=== PATIENT | female | born 1970 | race Caucasian/White ===

== ENCOUNTER 2024-09-25 15:27 | Emergency (ER) | payer OTHER, SELFPAY ==
[2024-09-25 15:35] VITALS: BP 141/92; PULSE 68; RESP 20; TEMP 37; O2SAT 100
--- NOTE | 2024-09-25 15:53 | ED_ITS ---
HPI - Wound/Laceration General Chief Complaint: Wound/Laceration Stated Complaint: R FOOT LACERATION Time Seen by Provider: 09/25/24 15:53 Source: patient Mode of arrival: ambulatory Limitations: no limitations History of Present Illness HPI narrative: 54-year-old female presents with laceration to right foot. Patient was cooking at home and a glass bowl fell off a counter and broke. Bleeding controlled on arrival. CMS intact. All systems reviewed and negative except as noted above. Related Data Home Medications ?Medication ?Instructions ?Recorded ?Confirmed ?Last Taken ?Type No Home Medications 09/25/24 09/25/24 Unknown History Allergies Allergy/AdvReac Type Severity Reaction Status Date / Time Sulfa (Sulfonamide Allergy Rash Verified 09/25/24 15:45 Antibiotics) Review of Systems Review of Systems: CONSTITUTIONAL: Denies fever, chills, or sweats. EYES: Denies visual changes, redness, or discharge. ENT: Denies rhinorrhea, congestion, sore throat, or otalgia. CARDIOVASCULAR: Denies chest pain, palpitations, or edema. RESPIRATORY: Denies cough or dyspnea. GASTROINTESTINAL: Denies abdominal pain, nausea, vomiting, or diarrhea. GENITOURINARY: Denies dysuria or hematuria. SKIN: Denies rash or itching. Reports laceration to right foot MUSCULOSKELETAL: Denies back pain, joint pain, or myalgia. NEUROLOGIC: Denies headache, numbness, or weakness. PSYCHIATRIC: Denies anxiety or depression. All other systems reviewed are negative, except as documented in HPI. PMFSH Comments At time of signature, agree with nursing past medical, surgical, social and family history. There is no relevant family history pertinent to the presenting complaint. Exam Narrative: GENERAL: This is a well-nourished, well-developed patient, in no apparent distress. HEAD: normocephalic, atraumatic. EYES: PERRL. Sclera clear/white. Vision is grossly intact. EARS: External ears normal NOSE: External nose normal NECK: Neck supple, non-tender without lymphadenopathy, masses or thyromegaly. CARDIOVASCULAR: Regular rate and rhythm without murmurs, gallops, or rubs. RESPIRATORY: Clear to auscultation. Breath sounds equal bilaterally. No wheezes, rales, or rhonchi. SKIN: warm, Dry, with no suspicious lesions or rash, good texture and turgor. 1 cm laceration to dorsal aspect of right foot to distal 5th metatarsal aspect NEURO: awake, alert, and oriented to person, place and time. There were no obvious focal neurologic abnormalities. EXTREMITIES: No joint tenderness, effusion, or edema noted. Course Course Level of Care: Express Care Visit Vital Signs Vital signs: Vital Signs Temperature 37.0 C 09/25/24 15:35 Pulse Rate 68 09/25/24 15:35 Respiratory Rate 20 09/25/24 15:35 Blood Pressure 141/92 H 09/25/24 15:35 Pulse Oximetry 100 09/25/24 15:35 Oxygen Delivery Room Air 09/25/24 15:35 Temperature 37.0 C 09/25/24 15:35 Pulse Rate 68 09/25/24 15:35 Respiratory Rate 20 09/25/24 15:35 Blood Pressure 141/92 H 09/25/24 15:35 Pulse Oximetry 100 09/25/24 15:35 Oxygen Delivery Room Air 09/25/24 15:35 Reviewed Procedures Laceration Laceration 1: Date: 09/25/24 Time: 16:00 Site: lower extremity (Foot) Side (If applicable): right Size (cm): 1 Description: irregular Depth: simple, single layer Local Anesthetic: lidocaine 1% Amount of anesthesia used (mL): 1 Pre-repair: wound explored and irrigated ====== Skin Level ====== Skin layer closed with: nylon Size (cm): 5-0 Number of sutures: 2 Technique: simple, interrupted ====== Subcutaneous Layer ====== ====== Muscle Layer ====== ====== Tendon Layer ====== MDM - Wound/Laceration MDM Narrative Medical decision making narrative: Laceration to right foot repaired with sutures. Patient tolerated well. CMS intact pre and postprocedure. Recommend follow-up in the next 7-10 days for suture removal. Differential Diagnosis Differential diagnosis: Likely laceration, abrasion and avulsion of skin Discharge Plan Discharge Clinical Impression: Laceration of dorsum of right foot Patient Disposition: Home Condition: Stable Instructions: Care For Your Stitches (ED), Laceration (ED) Additional Instructions: Keep sutures clean and dry. May apply an [id number] antibiotic ointment such as Neosporin twice a day for the next 3-5 days. Follow-up in 7-10 days for suture removal. If you have signs of infection such as redness, warmth, drainage and swelling follow-up with your primary care physician. Patient Language: Bengali Prescriptions: No Action No Home Medications Follow-up/Referrals: Jhony,MD Anum [Primary Care Provider] - Time of Disposition: 16:12
== END 2024-09-25 16:15 | disposition home or self-care (01) ==
PROVIDERS: Emergency Provider Nurse Practitioner Family; PCP Family Medicine
DX: S91.311A Laceration without foreign body, right foot, initial encounter (principal); W25.XXXA Contact with sharp glass, initial encounter
CPT/HCPCS: 12001; 99202; G0463; J2003